=== PATIENT | female | born 1985 ===

== ENCOUNTER 2017-11-29 01:16 | Emergency (ER) | payer MEDICAID, OTHER ==
[2017-11-29 01:19] VITALS: BMI 24.0
--- NOTE | 2017-11-29 01:52 | ED PDOC ---
Arrival/HPI - History of Present Illness Time/Duration: 4-6 hours Symptom Onset: Gradual Symptom Course: Unchanged Activities at Onset: Emotional Upset <Harsha Gomez - Last Filed: 11/29/17 06:25> <Mateo Aceves - Last Filed: 11/29/17 06:46> - General Chief Complaint: Psychiatric Evaluation Time Seen by Provider: 11/29/17 01:20 - History of Present Illness Narrative History of Present Illness (Text): 11/29/17 01:47 Pt is a 32 year old female who presents with depressed mood and EtOH intoxication. She states she has been drinking tequila and orange juice since 4 :00 PM, does not know how much she drank. The day prior she drank all day beginning at 11 am. She also admits to being depressed and stressed stating that she is recently one month ago and talking about ending the marriage. She denies nausea, vomiting, abdominal pain, tremors, hallucinations , delusions, palpitations, chest pain. Pt denies suicidal or homicidal ideation. (Harsha Gomez) Past Medical History - Provider Review Nursing Documentation Reviewed: Yes - Tetanus Immunization Tetanus Immunization: Unknown - Past Medical History Past Medical History: No Previous - Cardiac Hx Cardiac Disorders: No - Neurological Hx Neurological Disorder: No - HEENT Hx HEENT Disorder: No - Renal Hx Renal Disorder: No - Endocrine/Metabolic Hx Endocrine Disorders: No - Hematological/Oncological Hx Blood Disorders: No - Integumentary Hx Dermatological Disorder: No - Musculoskeletal/Rheumatological Hx Musculoskeletal Disorders: No - Gastrointestinal Hx Gastrointestinal Disorders: No - Genitourinary/Gynecological Hx Genitourinary Disorders: No - Psychiatric Hx Psychophysiologic Disorder: Yes Hx Depression: Yes Hx Substance Use: No - Past Surgical History Past Surgical History: No Previous - Anesthesia Hx Anesthesia: Yes - Suicidal Assessment Feels Threatened In Home Enviroment: No <Harsha Gomez - Last Filed: 11/29/17 06:25> Family/Social History - Physician Review Nursing Documentation Reviewed: Yes Family/Social History: No Known Family HX Smoking Status: Light Smoker < 10 Cigarettes Daily Hx Alcohol Use: Yes Hx Substance Use: No <Harsha Gomez - Last Filed: 11/29/17 06:25> Allergies/Home Meds <Harsha Gomez - Last Filed: 11/29/17 06:25> <Mateo Aceves - Last Filed: 11/29/17 06:46> Allergies/Adverse Reactions: Allergies No Known Allergies Allergy (Verified 11/29/17 01:19) Home Medications: Home Meds Medication Instructions Recorded Confirmed No Known Home Med 11/29/17 11/29/17 Review of Systems - Review of Systems Constitutional: Normal. absent: Fatigue, Weight Change Eyes: Normal. absent: Vision Changes, Photophobia ENT: Normal. absent: Sore Throat, Rhinorrhea Respiratory: Normal. absent: SOB, Cough Cardiovascular: Normal. absent: Chest Pain, Palpitations Gastrointestinal: Normal. absent: Abdominal Pain, Constipation, Diarrhea, Nausea, Vomiting Genitourinary Female: Normal. absent: Dysuria, Frequency Musculoskeletal: Normal. absent: Back Pain, Neck Pain Skin: absent: Rash, Pruritis Neurological: absent: Headache, Dizziness, Focal Weakness, Speech Changes Psychiatric: Depression, Other (denies homicidal ideation). absent: Suicidal Ideation <Harsha Gomez - Last Filed: 11/29/17 06:25> Physical Exam Vital Signs Reviewed: Yes Temperature: Afebrile Blood Pressure: Normal Pulse: Regular Respiratory Rate: Normal Appearance: Positive for: Non-Toxic, Other (appears intoxicated) Pain Distress: None Mental Status: Positive for: Alert and Oriented X 3 - Systems Exam Head: Present: Atraumatic, Normocephalic Pupils: Present: PERRL Extroacular Muscles: Present: EOMI Conjunctiva: Present: Normal Mouth: Present: Moist Mucous Membranes Pharnyx: Present: Normal. No: ERYTHEMA, EXUDATE Nose (External): Present: Atraumatic Respiratory/Chest: Present: Clear to Auscultation, Good Air Exchange. No: Respiratory Distress, Accessory Muscle Use Cardiovascular: Present: Regular Rate and Rhythm, Normal S1, S2. No: Murmurs Abdomen: Present: Normal Bowel Sounds. No: Tenderness, Distention, Rebound, Guarding Upper Extremity: Present: Normal Inspection. No: Cyanosis, Edema Lower Extremity: Present: Other (+healed cuts/scrapes on legs b/l). No: Edema, CALF TENDERNESS, Cyanosis Neurological: Present: GCS=15, CN II-XII Intact, Speech Normal Skin: Present: Warm, Dry, Normal Color. No: Rashes Psychiatric: Present: Alert, Oriented x 3 <Harsha Gomez - Last Filed: 11/29/17 06:25> Vital Signs Temp Pulse Resp BP Pulse Ox 11/29/17 05:09 78 16 110/62 100 11/29/17 01:50 98.7 F 80 17 108/70 100 Medical Decision Making - EKG Interpretation Interpreted by ED Physician: Yes <Harsha Gomez - Last Filed: 11/29/17 06:25> <Mateo Aceves - Last Filed: 11/29/17 06:46> ED Course and Treatment: 11/29/17 01:58 1) Depression * Crisis assessment 2) EtOH Intoxication * CBC * CMP * UDS * Urine alcohol (Harsha Gomez) Impression: Pt seen and evaluated with durable medical equipment technician. Aware and agree with HPI, clinical findings, plan, and management. Pt presented for depression and alcohol intoxication. Plan: -- Labs, alcohol level -- Urine durg screen -- Reassess and disposition 11/29/17 05:43 Pt screened by PES, who spoke mother regarding pt. As per mother, pt expressed suicidal ideation and was concerned. PES screener Manuela discussed case with psychiatrist and pt will be [place] [facility] 11/29/17 07:[address] Manley, pending [facility] [place], re-evaluation, and disposition. (Mateo Aceves) - Lab Interpretations Narrative Lab Interpretation (Text): UDS +cannabinoids and opiates (Harsha Gomez) Lab Results: 11/29/17 02:02 11/29/17 02:02 Lab Results 11/29/17 03:07: Urine Color Yellow, Urine Appearance Clear, Urine pH 6.0, Ur Specific [place] <= 1.005, Urine Protein Negative, Urine Glucose (UA) Negative, Urine Ketones Negative, Urine Blood Negative, Urine Nitrate Negative, Urine Bilirubin Negative, Urine Urobilinogen 0.2, Ur Leukocyte Esterase Negative 11/29/17 03:00: Urine Opiates Screen Negative, Urine Methadone Screen Negative, Ur Barbiturates Screen Negative, Ur Phencyclidine Scrn Negative, Ur Amphetamines Screen Negative, U Benzodiazepines Scrn Positive H, U Oth Cocaine Metabols Negative, U Cannabinoids Screen Positive H 11/29/17 02:02: Alcohol, Quantitative 10 11/29/17 02:02: Sodium 142, Potassium 3.8, Chloride 105, Carbon Dioxide 24, Anion Gap 18, BUN 10, Creatinine 0.6 L, Est GFR ( Amer) > 60, Est GFR ( Non-Af Amer) > 60, Random Glucose 91, Calcium 9.1, Total Bilirubin 0.5, AST 20, ALT 25, Alkaline Phosphatase 68, Total Protein 7.4, Albumin 4.4, Globulin 3.0, Albumin/Globulin Ratio 1.5 11/29/17 02:02: WBC 10.4, RBC 4.45, Hgb 14.1, Hct 40.1, MCV 90.1, MCH 31.7, MCHC 35.2, RDW 12.1, Plt Count 319, MPV 10.9, Gran % 65.4, Lymph % (Auto) 25.0, [place] % (Auto) 6.8 H, Eos % (Auto) 2.5, Baso % (Auto) 0.3, Gran # 6.79 H, Lymph # (Auto) 2.6, [place] # (Auto) 0.7 H, Eos # (Auto) 0.3, Baso # (Auto) 0.03 - RAD Interpretation Radiology Orders: 11/29/17 05:41 CHEST PORTABLE [RAD] Stat - EKG Interpretation EKG Interpretation (Text): 11/29/17 06:25 Normal sinus rhythm, no ST or T changes, normal EKG (Harsha Gomez) - PA / CHEMICAL RESEARCH ENGINEER / Resident Statement VALENTINE has reviewed & agrees with the documentation as recorded. / has examined the patient and agrees with the treatment plan. <Mateo Aceves - Last Filed: 11/29/17 06:46> Disposition/Present on Arrival - Present on Arrival History of DVT/PE: No History of Uncontrolled Diabetes: No Urinary Catheter: No History of Decub. Ulcer: No History Surgical Site Infection Following: None <Harsha Gomez - Last Filed: 11/29/17 06:25> - Present on Arrival Any Indicators Present on Arrival: No - Disposition Have Diagnosis and Disposition been Completed?: No Disposition Time: 07:00 <Mateo Aceves - Last Filed: 11/29/17 06:46> - Disposition Diagnosis: Depression Patient Problems: Current Active Problems Problem Status Onset Depression Acute Condition: STABLE Forms: [employer] (Czech)
[2017-11-29 02:14] LABS: BASO # 0.03 K/mm3 (0.0-2.0); BASO % 0.3 % (0.0-3.0); EOS # 0.3 (0.0-0.7); EOS % 2.5 % (1.5-5.0); GRAN # 6.79 (1.4-6.5); GRAN % 65.4 % (50.0-68.0); HEMOGLOBIN 14.1 g/dL (12.0-16.0); LYMPH # 2.6 (1.2-3.4); MEAN CELL VOLUME 90.1 fl (80.0-105.0); MEAN CORPUSCULAR HEMOGLOBIN 31.7 pg (25.0-35.0); MEAN CORPUSCULAR HGB CONC 35.2 g/dl (31.0-37.0); MEAN PLATELET VOLUME 10.9 fl (7.0-11.0); MONO # 0.7 (0.1-0.6); MONO % 6.8 % (1.0-6.0); RBC 4.45 10^6/uL (3.5-6.1); RED CELL DISTRIBUTION WIDTH 12.1 % (11.5-14.5); WHITE BLOOD COUNT 10.4 10^3/ul (4.5-11.0)
[2017-11-29 02:23] LABS: ALB/GLOB RATIO 1.5 (1.1-1.8); ALBUMIN 4.4 g/dL (3.0-4.8); ALT/SGPT 25 U/L (7-56); AST/SGOT 20 U/L (14-36); BLOOD UREA NITROGEN 10 mg/dL (7-21); CALCIUM 9.1 mg/dL (8.4-10.5); GFR AFRICAN-AMERICAN > 60; GFR NON-AFRICAN AMERICAN > 60
[2017-11-29 04:03] LABS: BARBITURATES, UR NEGATIVE (NEGATIVE); BENZODIAZEPINES, UR POSITIVE (NEGATIVE); OPIATES, UR NEGATIVE (NEGATIVE); PHENCYCLIDINE, UR NEGATIVE (NEGATIVE)
[2017-11-29 06:01] LABS: URINE BILIRUBIN NEGATIVE (NEGATIVE); URINE BLOOD NEGATIVE (NEGATIVE); URINE GLUCOSE (UA) NEGATIVE (NEGATIVE); URINE LEUKOCYTE ESTERASE NEGATIVE Leu/uL (NEGATIVE); URINE PROTEIN NEGATIVE mg/dL (<30 mg/dL); URINE UROBILINOGEN 0.2 E.U./dL (<1 E.U./dL)
[2017-11-29 06:06] LABS: URINE APPEARANCE CLEAR (CLEAR); URINE COLOR YELLOW (YELLOW)
--- NOTE | 2017-11-29 07:17 | ED PDOC ---
Physical Exam Vital Signs Reviewed: Yes Temperature: Afebrile Blood Pressure: Normal Pulse: Regular Respiratory Rate: Normal Appearance: Positive for: Well-Appearing, Non-Toxic, Comfortable Pain Distress: None Mental Status: Positive for: Alert and Oriented X 3 - Systems Exam Head: Present: Atraumatic, Normocephalic Pupils: Present: PERRL Extroacular Muscles: Present: EOMI Conjunctiva: Present: Normal Neck: Present: Normal Range of Motion Respiratory/Chest: Present: Clear to Auscultation, Good Air Exchange. No: Respiratory Distress, Accessory Muscle Use Cardiovascular: Present: Regular Rate and Rhythm, Normal S1, S2. No: Murmurs Abdomen: No: Tenderness, Distention, Peritoneal Signs Back: Present: Normal Inspection Upper Extremity: Present: Normal Inspection. No: Cyanosis, Edema Lower Extremity: Present: Normal Inspection. No: Edema Neurological: Present: GCS=15, CN II-XII Intact, Speech Normal Skin: Present: Warm, Dry, Normal Color. No: Rashes Psychiatric: Present: Alert, Oriented x 3, Normal Insight, Normal Concentration <Luis Manley - Last Filed: 11/29/17 17:56> Vital Signs Temp Pulse Resp BP Pulse Ox 11/29/17 19:00 98.2 F 88 18 122/78 98 11/29/17 13:00 88 18 102/79 99 11/29/17 11:00 98 F 72 18 132/79 99 11/29/17 09:00 72 18 102/77 99 11/29/17 07:00 98.6 F 72 18 120/77 98 11/29/17 05:09 78 16 110/62 100 11/29/17 01:50 98.7 F 80 17 108/70 100 Medical Decision Making <Luis Manley - Last Filed: 11/29/17 17:56> <Mateo Aceves - Last Filed: 11/29/17 20:22> ED Course and Treatment: 11/29/17 07:10 Case endorsed to me by Dr. Manley for pending [facility] [place], re-evaluation, and disposition. Patient is a 32 year old female who presented to the Emergency department earlier today for evaluation of depressed mood. Patient is currently resting in bed in no acute distress. Patient presents no new complaints and denies suicidal or homicidal ideation. 11/29/17 17:56 pt pending screener arrival. observed eating, and sitting in nad. (Luis Manley) 11/29/17 20:21 Patient was evaluated by [facility] screen[place].Patient was cleared for discharge.Seen as well by FRANK Roth.Pt. for discharge out patient follow up [facility] [place]. (Mateo Aceves) - Lab Interpretations Lab Results: 11/29/17 02:02 11/29/17 02:02 Lab Results 11/29/17 03:07: Urine Color Yellow, Urine Appearance Clear, Urine pH 6.0, Ur Specific [place] <= 1.005, Urine Protein Negative, Urine Glucose (UA) Negative, Urine Ketones Negative, Urine Blood Negative, Urine Nitrate Negative, Urine Bilirubin Negative, Urine Urobilinogen 0.2, Ur Leukocyte Esterase Negative 11/29/17 03:00: Urine Opiates Screen Negative, Urine Methadone Screen Negative, Ur Barbiturates Screen Negative, Ur Phencyclidine Scrn Negative, Ur Amphetamines Screen Negative, U Benzodiazepines Scrn Positive H, U Oth Cocaine Metabols Negative, U Cannabinoids Screen Positive H 11/29/17 02:02: Alcohol, Quantitative 10 11/29/17 02:02: Sodium 142, Potassium 3.8, Chloride 105, Carbon Dioxide 24, Anion Gap 18, BUN 10, Creatinine 0.6 L, Est GFR ( Amer) > 60, Est GFR ( Non-Af Amer) > 60, Random Glucose 91, Calcium 9.1, Total Bilirubin 0.5, AST 20, ALT 25, Alkaline Phosphatase 68, Total Protein 7.4, Albumin 4.4, Globulin 3.0, Albumin/Globulin Ratio 1.5 11/29/17 02:02: WBC 10.4, RBC 4.45, Hgb 14.1, Hct 40.1, MCV 90.1, MCH 31.7, MCHC 35.2, RDW 12.1, Plt Count 319, MPV 10.9, Gran % 65.4, Lymph % (Auto) 25.0, [place] % (Auto) 6.8 H, Eos % (Auto) 2.5, Baso % (Auto) 0.3, Gran # 6.79 H, Lymph # (Auto) 2.6, [place] # (Auto) 0.7 H, Eos # (Auto) 0.3, Baso # (Auto) 0.03 - RAD Interpretation Radiology Orders: 11/29/17 05:41 CHEST PORTABLE [RAD] Stat - Medication Orders Current Medication Orders: Discontinued Medications Nicotine (Nicoderm Cq) 1 patch TD STAT STA Stop: 11/29/17 10:04 Last Admin: 11/29/17 10:45 Dose: 1 patch MAR Transdermal Patch Site Document 11/29/17 10:45 EWO (Rec: 11/29/17 10:48 EWO [id number]) Transdermal Patch Site Transdermal Patch Site Right Shoulder - Scribe Statement The provider has reviewed the documentation as recorded by the Scribe <Luis Manley - Last Filed: 11/29/17 17:56> <Mateo Aceves - Last Filed: 11/29/17 20:22> - Scribe Statement Deo Galicia. All medical record entries made by the Scribe were at my direction and personally dictated by me. I have reviewed the chart and agree that the record accurately reflects my personal performance of the history, physical exam, medical decision making, and the department course for this patient. I have also personally directed, reviewed, and agree with the discharge instructions and disposition. (Luis Manley) Disposition/Present on Arrival - Present on Arrival Any Indicators Present on Arrival: No History of DVT/PE: No History of Uncontrolled Diabetes: No Urinary Catheter: No History of Decub. Ulcer: No History Surgical Site Infection Following: None - Disposition Have Diagnosis and Disposition been Completed?: Yes Disposition Time: 01:00 <Luis Manley - Last Filed: 11/29/17 17:56> - Disposition Disposition Time: 20:22 Patient Plan: Discharge <Mateo Aceves - Last Filed: 11/29/17 20:22> - Disposition Diagnosis: Depression Disposition: HOSPITALIZED Patient Problems: Current Active Problems Problem Status Onset Depression Acute Condition: STABLE Forms: [employer] (Romansh)
--- NOTE | 2017-11-29 08:34 | RAD ---
Date of service: 11/29/2017 HISTORY: Screen for possible psych admission COMPARISON: No prior. FINDINGS: LUNGS: No active pulmonary disease. PLEURA: No significant pleural effusion identified, no pneumothorax apparent. CARDIOVASCULAR: Normal. OSSEOUS STRUCTURES: No significant abnormalities. VISUALIZED UPPER ABDOMEN: Normal. OTHER FINDINGS: None. IMPRESSION: No active disease.
--- NOTE | 2017-11-29 15:28 | CARD ---
APPROVED REPORT Date of service: 11/29/2017 EKG Measurement Heart [id number] <Conclusion> Normal sinus rhythm Normal ECG
[2017-11-29 19:07] VITALS: TEMP 98.2
[2017-11-29 20:43] VITALS: BP 115/72; PULSE 72; RESP 16; O2SAT 100
== END 2017-11-29 20:43 | disposition home or self-care (01) ==
LOC: ED 01:16
DX: F32.9 Major depressive disorder, single episode, unspecified (principal)